=== PATIENT | male | born 1965 | race African-American/Black ===

== ENCOUNTER 2022-07-03 01:48 | Day surgery (SDC) | payer OTHER, SELFPAY ==
[2022-06-19 14:36] VITALS: BMI 25.9
[2022-07-03 06:23] VITALS: BP 139/85; PULSE 86; RESP 18; TEMP 36.1; O2SAT 100; BMI 25.9
[2022-07-03] MEDS: LACTATED RINGERS 1,000 ML 150 ML IV CONT (06:34)
--- NOTE | 2022-07-03 07:24 | P.PNAN_ITS ---
Anes - Initial Pre Proc Eval Procedure: Operation Date: 07/03/22 07:30 Proposed Procedures p Screening Colonoscopy - Stephen Donohue MD Date/Time: 07/03/22 07:24 Surgeon: Stephen Donohue MD Pre Op Diagnosis: neoplasm screening, hx colon polyps Patient Data Age: 56 Gender: M Height: 1.85 m Weight: 89.1 kg Last Vital Signs Temp 97 F L 07/03/22 06:23 Pulse 86 07/03/22 06:23 Resp 18 07/03/22 06:23 BP 139/85 07/03/22 06:23 Pulse Ox 100 07/03/22 06:23 O2 Del Method Room Air 07/03/22 06:23 Allergies Allergy/AdvReac Type Severity Reaction Status Date / Time No Known Allergies Allergy Verified 06/19/22 14:35 Home Medications Medication Instructions Recorded Confirmed Type sodium,potassium,mag sulfates 17.5 See Rx Instructions PO .COMPLEX 06/16/22 Rx gram-3.13 gram-1.6 gram oral soln #354 mL (Suprep Bowel Prep Kit) Patient hx anesthesia problems: none Family hx anesthesia problems: none Results Review: All pre-operative results and documents have been reviewed as part of the pre- operative evaluation. [facility] Social History Social History Smoking status: Never smoker Alcohol intake: never Substance use: never Substance use type: does not use Living arrangements: with family Spiritual care concerns: No Anes - Eval Final PreProcedure Day of Procedure 07/03/22 07:24 Patient weight: normal Heart: regular rate and rhythm Lungs: clear to auscultation Airway: Mallampati scale class II Neurological: alert and oriented Last oral intake: >/= 8 hours ASA classification: II Emergent: no Anesthetic plan: proceed Anesthesia type and monitoring: general GIVS and standard monitoring Results Review: All pre-operative results and documents have been reviewed as part of the pre- operative evaluation. Informed Consent: The patient's anesthetic plan and its attendant risks and benefits were discussed with the patient/family/POA. Questions were solicited and answers provided to the satisfaction of the patient/family/POA.
--- NOTE | 2022-07-03 07:42 | P.HP_ITS ---
History of Present Illness History of Present Illness Consent: Risks, benefits, and alternatives have been discussed and questions answered. Patient agrees to proceed with procedure. Chief complaint: neoplasm screening, hx colon polyps Narrative: Alban Anderson is a 56 year old male Presents for screening colonoscopy. Patient reports that his current weight appetite and bowel movements are normal. Patient denies abdominal pain. He has had no bleeding. Patient reports 7 years ago underwent colonoscopy in small polyp was removed but he ultimately was told it was not pathologic. patient's family history is noncontributory. Review of Systems Review of Systems: Review of systems is noncontributory. [facility] Social History Social History Smoking status: Never smoker Alcohol intake: never Substance use: never Substance use type: does not use Living arrangements: with family Spiritual care concerns: No Meds Home Medications and Allergies Home Medications Medication Instructions Recorded Confirmed Type sodium,potassium,mag sulfates 17.5 See Rx Instructions PO .COMPLEX 06/16/22 Rx gram-3.13 gram-1.6 gram oral soln #354 mL (Suprep Bowel Prep Kit) Allergies Allergy/AdvReac Type Severity Reaction Status Date / Time No Known Allergies Allergy Verified 06/19/22 14:35 Vital Signs Vital Signs - 24 hr 07/03/22 06:23 Temperature 97 F L Pulse Rate 86 Respiratory Rate 18 Blood Pressure 139/85 Pulse Oximetry 100 Oxygen Delivery Room Air Exam Narrative: Physical exam reveals patient be alert. Vital signs stable. HEENT exam is unremarkable. Patient is anicteric. Lungs are clear to auscultation and percussion. Heart is without murmur or extra sounds. Abdomen bowel sounds are present soft nontender with no organomegaly. Digital external rectal exam is normal. Assessment and Plan Assessment and plan (1) Encounter for screening colonoscopy: Code(s): Z12.11 - Encounter for screening for malignant neoplasm of colon Status: Acute Assessment and Plan: Patient presents today for screening colonoscopy. Appears to be at average risk for colon polyps. Further recommendations will be given after endoscopy.
[2022-07-03 07:44] VITALS: BP 96/63; PULSE 58; RESP 23; O2SAT 95
[2022-07-03 07:54] VITALS: BP 120/76; PULSE 65; RESP 19; O2SAT 97
[2022-07-03 08:04] VITALS: BP 133/90; PULSE 66; RESP 19; O2SAT 97
== END 2022-07-03 08:09 | disposition home or self-care (01) ==
PROVIDERS: Visit Provider Internal Medicine Gastroenterology
PROC: 0DJD8ZZ Inspection of Lower Intestinal Tract, Via Natural or Artificial Opening Endoscopic (ICD-10-PCS; CPT 45378; principal; 2022-07-03 07:30)
DX: Z12.11 Encounter for screening for malignant neoplasm of colon (principal); K64.8 Other hemorrhoids
CPT/HCPCS: 45378; J7120

== ENCOUNTER → 2023-08-13 13:43 | Outpatient (CLI) | payer OTHER, SELFPAY ==
--- NOTE | ~2023-08-13 | CT_ITS ---
CT of the Abdomen and Pelvis: Indication: Abdominal pain Technique: 2.5 mm axial scans were obtained through the abdomen and pelvis following intravenous adm inistration of 100 cc of Omnipaque 350. Dose reduction technique was used on this scan by utilizing a utomated exposure control and iterative reconstruction technique. The dose-length product (DLP) was 6 95.59 mGy-cm. Findings: Scans through the lung bases are unremarkable. The liver, spleen, pancreas, gallbladder, adrenals and kidneys are within normal limits. No evidence of aortic aneurysm. No lymphadenopathy. No bowel obstruction or bowel wall thickening. There is no evidence to suggest acute appendicitis. Images through the pelvis were performed. Urinary bladder unremarkable. Prostate gland is significant ly enlarged. No ascites. Impression: No acute abnormality. Enlarged prostate gland. Reviewed, dictated and finalized at [facility]. RAISER Impression: No acute abnormality. Enlarged prostate gland.
== END ==
PROVIDERS: PCP Emergency Medicine; Visit Provider Emergency Medicine
DX: R10.30 Lower abdominal pain, unspecified (principal); N40.0 Benign prostatic hyperplasia without lower urinary tract symptoms
CPT/HCPCS: 74177; Q9967

== ENCOUNTER 2023-08-28 07:27 | Outpatient (CLI) | payer OTHER, SELFPAY ==
--- NOTE | ~2023-08-28 | US_ITS ---
EXAMINATION: US abdomen limited DATE: 08/28/2023 07:47 INDICATION: Liver disease with elevated liver function tests TECHNIQUE: Multiple grayscale and Doppler ultrasound images of the abdomen were obtained. COMPARISON: None FINDINGS: The pancreatic head and body are normal in appearance. The pancreatic tail is not visualized. The vi sualized proximal inferior vena cava is normal. Liver has normal echogenicity and contour, with a smo oth surface. No liver lesion identified. No intrahepatic biliary duct dilation suspected. Portal veno us flow was seen in the hepatopetal, normal direction and has normal Doppler waveform. The gallbladde r is normal in appearance. There is no cholelithiasis. The common bile duct measures 4 mm, which is normal. Sonographic Sheets sign was reported as negative by the human resource analyst. IMPRESSION: 1. Normal right upper quadrant ultrasound. Reviewed, dictated and finalized at location A.
== END 2023-08-28 07:28 ==
PROVIDERS: PCP Emergency Medicine; Visit Provider Emergency Medicine
DX: K76.9 Liver disease, unspecified (principal)
CPT/HCPCS: 76705

== ENCOUNTER 2023-09-22 10:07 | Outpatient (CLI) | payer OTHER, SELFPAY ==
--- NOTE | 2023-09-22 10:51 | EST_ITS ---
Patient Info Name: Alban Anderson Age: 57 years : 1965 Gender: Male Ht: 73 in Wt: 198 lbs BSA: 2.16 m2 HR: 48 bpm BP: 119 / 68 mmHg Heart Rhythm: Sinus Rhythm Exam Date: 09/22/2023 11:05 AM Exam Location: Echo Lab Patient Status: Outpatient Admit Date: 09/22/2023 Staff Ordering Physician: Lawrence Yoo DO Attending Provider: Lawrence Yoo DO Exercise Technologist: Jenn Garza CT Exercise Physician: Lawrence Yoo DO Exam Type: CA stress test treadmill Study Info Indications I47.2 - Ventricular tachycardia A treadmill exercise stress test was performed. Summary 1. 1. Abnormal Terell exercise stress test for ischemic ST changes by ECG criteria. 2. 2. Good functional capacity, achieving 10 METs of workload. 3. 3. Appropriate HR response to exercise. 4. 4. Appropriate HR recovery at 1 minute post exercise. 5. 5. No imaging with stress testing. 6. 6. Patient informed of the above results. Protocol: Terell Stress ECG Details Stage: REST Duration (min): 1 min : 14 sec Speed (mph): 0.0 Grade (%): 0 HR (bpm): 45 SBP (mmHg): 119 DBP (mmHg): 68 METS: --- Stage: REST Duration (min): 2 min : 48 sec Speed (mph): 0.0 Grade (%): 0 HR (bpm): 52 SBP (mmHg): 119 DBP (mmHg): 68 METS: --- Stage: REST Duration (min): 4 min : 16 sec Speed (mph): 0.0 Grade (%): 0 HR (bpm): 51 SBP (mmHg): 119 DBP (mmHg): 68 METS: --- Stage: STAGE 1 Duration (min): 1 min : 0 sec Speed (mph): 1.7 Grade (%): 10 HR (bpm): 67 SBP (mmHg): 119 DBP (mmHg): 68 METS: --- Stage: STAGE 1 Duration (min): 2 min : 0 sec Speed (mph): 1.7 Grade (%): 10 HR (bpm): 72 SBP (mmHg): 119 DBP (mmHg): 68 METS: --- Stage: STAGE 1 Duration (min): 3 min : 0 sec Speed (mph): 1.7 Grade (%): 10 HR (bpm): 74 SBP (mmHg): 129 DBP (mmHg): 77 METS: --- Stage: STAGE 2 Duration (min): 1 min : 0 sec Speed (mph): 2.5 Grade (%): 12 HR (bpm): 88 SBP (mmHg): 129 DBP (mmHg): 77 METS: --- Stage: STAGE 2 Duration (min): 2 min : 0 sec Speed (mph): 2.5 Grade (%): 12 HR (bpm): 93 SBP (mmHg): 153 DBP (mmHg): 69 METS: --- Stage: STAGE 2 Duration (min): 3 min : 0 sec Speed (mph): 2.5 Grade (%): 12 HR (bpm): 98 SBP (mmHg): 153 DBP (mmHg): 69 METS: --- Stage: STAGE 3 Duration (min): 1 min : 0 sec Speed (mph): 3.4 Grade (%): 14 HR (bpm): 107 SBP (mmHg): 153 DBP (mmHg): 70 METS: --- Stage: STAGE 3 Duration (min): 2 min : 0 sec Speed (mph): 3.4 Grade (%): 14 HR (bpm): 115 SBP (mmHg): 153 DBP (mmHg): 70 METS: --- Stage: STAGE 3 Duration (min): 2 min : 0 sec Speed (mph): 3.4 Grade (%): 14 HR (bpm): 115 SBP (mmHg): 153 DBP (mmHg): 70 METS: --- Stage: RECOVERY Duration (min): 0 min : 59 sec Speed (mph): 0.0 Grade (%): 0 HR (bpm): 80 SBP (mmHg): 140 DBP (mmHg): 53 METS: ---
== END 2023-09-22 10:08 | disposition home or self-care (01) ==
PROVIDERS: PCP Emergency Medicine; Visit Provider Internal Medicine Cardiovascular Disease
DX: I47.29 Other ventricular tachycardia (principal)
CPT/HCPCS: 93017

== ENCOUNTER 2023-09-28 13:53 | Outpatient (CLI) | payer OTHER, SELFPAY ==
--- NOTE | ~2023-09-28 | US_ITS ---
EXAMINATION: US thyroid DATE: 09/28/2023 14:10 INDICATION: Autoimmune thyroiditis. TECHNIQUE: Multiple ultrasound images of the thyroid were obtained. COMPARISON: None. FINDINGS: The right thyroid lobe measures 3.9 x 1.7 x 1.5 cm. The left thyroid lobe measures 4.5 x 2.1 x 1.7 c m. The thyroid demonstrates coarsened echotexture. Vascularity is normal. In the left thyroid lobe, there is an 8 mm solid, hyperechoic, taller than wide nodule with smooth margin without echogenic foc i (TI-RADS TR4). IMPRESSION: 1. Small thyroid nodule, likely not clinically significant. No follow-up is needed. 2. Heterogeneous thyroid, likely chronic lymphocytic (Nannette) thyroiditis. Reviewed, dictated and finalized at location E. IMPRESSION: 1. Small thyroid nodule, likely not clinically significant. No follow-up is nee ded. 2. Heterogeneous thyroid, likely chronic lymphocytic (Nannette) thyroiditis.
== END 2023-09-28 13:54 ==
PROVIDERS: PCP Emergency Medicine; Visit Provider Emergency Medicine
DX: E06.3 Autoimmune thyroiditis (principal); E04.1 Nontoxic single thyroid nodule
CPT/HCPCS: 76536

== ENCOUNTER 2023-10-14 12:29 | Outpatient (CLI) | payer OTHER, SELFPAY ==
--- NOTE | 2023-10-14 12:42 | ECHO_ITS ---
Patient Info Name: Alban Anderson Age: 57 years : 1965 Gender: Male Ht: 73 in Wt: 195 lbs BSA: 2.14 m2 HR: 56 bpm BP: 151 / 85 mmHg Technical Quality: Good Exam Date: 10/14/2023 12:48 PM Exam Location: Echo Lab Patient Status: Outpatient Admit Date: 10/14/2023 Staff Ordering Physician: Lawrence Yoo DO Dielectric Tester: Jay Yang RDCS Attending Provider: Lawrence Yoo DO Referring Physician: Fredo HAMILTON; Exam Type: CA echo doppler color flow Study Info Indications I47.9 - Paroxysmal tachycardia, unspecified Complete two-dimensional, color flow and Doppler transthoracic echocardiogram is performed. Summary 1. Complete two-dimensional, color flow and Doppler transthoracic echocardiogram is performed. 2. Left ventricular chamber dimension is normal. 3. Left ventricular systolic function is normal, estimated at 65-70%. 4. The left ventricular diastolic function is normal. 5. E/e' 9 is minimally elevated. 6. Left atrial chamber dimension is mildly enlarged. 7. There is mild mitral valve regurgitation. 8. There is mild tricuspid valve regurgitation. 9. No pulmonary hypertension, estimated pulmonary arterial systolic pressure is 32 mmHg. 10. There is trace pulmonic regurgitation. Left Ventricle E/e' 9 is minimally elevated. Left ventricular chamber dimension is normal. Left ventricular systolic function is normal, estimated at 65-70%. The left ventricular diastolic function is normal. Right Ventricle Right ventricular systolic function is normal and with normal TAPSE 2.7 cm. Right ventricular chamber dimension is normal. Left Atria Left atrial chamber dimension is mildly enlarged. Right Atria Right atrial chamber dimension is normal. Aortic Valve The aortic valve is trileaflet. There is no aortic valve stenosis. There is no aortic valve regurgitation. Pulmonic Valve There is trace pulmonic regurgitation. Mitral Valve There is no mitral valve stenosis. There is mild mitral valve regurgitation. Tricuspid Valve There is mild tricuspid valve regurgitation. No pulmonary hypertension, estimated pulmonary arterial systolic pressure is 32 mmHg. Pericardium/Pleural There is no pericardial effusion. Inferior Vena Cava Normal inferior vena cava with >50% collapse upon inspiration consistent with normal right atrial pressure, 5 mmHg. Aorta The aortic root size at the sinus of Valsalva is normal. Left Ventricular Outflow Tract Name Value Normal LVOT Doppler LVOT Peak Gradient 8 mmHg LVOT Mean Gradient 3 mmHg LVOT VTI 27 cm LVOT VTI/AV VTI Ratio 0.9 Pulmonic Valve Name Value Normal RVOT Doppler RVOT Peak Gradient 2 mmHg PV Doppler PV Peak Gradient 8 mmHg PV Regurgitation Doppler GA Peak End Diastolic Velocity
== END 2023-10-14 12:30 | disposition home or self-care (01) ==
LOC: ANHCARD 12:30
PROVIDERS: PCP Emergency Medicine; Visit Provider Internal Medicine Cardiovascular Disease
DX: I47.29 Other ventricular tachycardia (principal); I08.1 Rheumatic disorders of both mitral and tricuspid valves
CPT/HCPCS: 93306

== ENCOUNTER 2023-11-09 00:48 | Day surgery (SDC) | payer OTHER, SELFPAY ==
[2023-11-05 13:05] VITALS: BMI 25.7
[2023-11-09] VITALS (13 sets, daily range): BP systolic 103–125; BP diastolic 66–88; PULSE 37–50; RESP 12–16; TEMP 36–36.7; O2SAT 95–99; BMI 25.7
[2023-11-09 07:39] LABS: Basophils Absolute Auto 0.1 K/mm3 (0.0-0.1); Basophils Percent Auto 1.3 % (0.2-1.2); Eosinophils Absolute Auto 0.2 K/mm3 (0-0.3); Eosinophils Percent Auto 3.2 % (0-4.4); Hematocrit 46.9 % (42.0-52.0); Hemoglobin 15.2 g/dL (14.0-18.0); Immature Granulocyte Absolute 0.02 K/mm3 (0.00-0.031); Immature Granulocyte Percent A 0.3 % (0-0.5); Lymphocytes Absolute Auto 2.26 K/mm3 (0.9-3.2); Lymphocytes Percent Auto 31.4 % (18.3-44.2); Mean Corpuscular HGB Conc 32.4 g/dl (32-36); Mean Corpuscular Hemoglobin 27.1 pg (26-34); Mean Corpuscular Volume 83.8 fl (80-100); Mean Platelet Volume 10.5 fl (7.4-10.4); Monocytes Absolute Auto 0.7 K/mm3 (0.1-0.6); Neutrophils Absolute Auto 3.9 K/mm3 (1.3-6.7); Neutrophils Percent Auto 53.8 % (45.5-73.1); Platelet Count Result 203 k/mm3 (150-375); Red Cell Distribution Width 13.2 % (11.5-14.5); White Blood Count 7.2 K/mm3 (4.5-10.0)
[2023-11-09 07:49] LABS: Anion Gap 7 mmol/L (4-12); Blood Urea Nitrogen 22 mg/dL (9-20); Calcium 9.5 mg/dL (8.4-10.2); Carbon Dioxide 24 mmol/L (22-30); Chloride 108 mmol/L (98-107); Estimated CRCL calculation 79 ml/min; Estimated Glomerular Filt Rate > 60; Glucose 123 mg/dL (65-110); Potassium 4.3 mmol/L (3.4-5.0); Sodium 139 mmol/L (137-145)
[2023-11-09] MEDS: SODIUM CHLORIDE 0.9% IV 500 ML 100 ML IV CONT (08:15)
--- NOTE | 2023-11-09 08:57 | WPDHPUPDATE1 ---
History and Physical Update Update Date/Time: 11/09/23 08:57 History and Physical has been reviewed, including an updated exam of the patient. There are NO changes in the patient's condition. Risks, benefits, and alternatives have been discussed and questions answered. Patient agrees to proceed with procedure.
--- NOTE | 2023-11-09 08:57 | WPDMODSED ---
Moderate Sedation Note-Pt Data Patient Data Diagnosis: Coronary artery disease Present Complaint: Coronary artery disease Procedure to be performed/Plan: Coronary angiography, left heart cath, +/- PCI Allergies Allergy/AdvReac Type Severity Reaction Status Date / Time No Known Allergies Allergy Verified 11/09/23 07:26 Home Medications Medication Instructions Recorded Confirmed Type metoprolol succinate 25 mg 25 mg PO DAILY #30 tabs 09/07/23 11/09/23 Rx tablet,extended release 24 hr aspirin 81 mg tablet,delayed 81 mg PO DAILY 10/15/23 11/09/23 History release Current Medications: Active Medications Sodium Chloride (Normal Saline Iv) 500 mls @ 100 mls/hr IV CONT .Q5H [facility] Sedation/Anesthesia: No previous sedation/anesthesia problems (including family history). [facility] Social History Social History Smoking status: Never smoker Second hand tobacco smoke exposure: No Alcohol intake: never Substance use: never Substance use type: does not use Do You Feel Safe in your Home?: Yes Lack of Transportation: No Lack of Food: Never True Current Housing: I Have Housing Concerned About Future Housing: No Difficulty Paying Gas/Electric Bills: No Difficulty Paying for Meds: No Currently Unemployed: No Education: Associate Degree Difficulty w/ Childcare or Family Care: No Living arrangements: with family Spiritual care concerns: No Mod Sed Physical Exam Physical Exam Pre Procedural Exam: Normal: Appearance, Lungs, Heart Rate, Heart Rhythm, Neuro Exam, Abdomen, Extremities and Skin Hours since solid foods: 12 Hours since liquid intake: 8 Mallampati Classification: class III Internal Medicine - PN: Obj Da Vital Signs Vital Signs: Vital Signs - 24 hr 11/09/23 07:27 Temperature 36.7 C Pulse Rate 50 L Respiratory Rate 14 Blood Pressure 114/88 Pulse Oximetry 98 Oxygen Delivery Room Air Meds/Results Medications: Active Medications Generic Name Dose Route Start Last Admin Trade Name Freq PRN Reason Stop Dose Admin Sodium Chloride 500 mls @ 100 mls/hr 11/09/23 07:00 Normal Saline Iv IV CONT .Q5H [facility] 11/09/23 07:33 11/09/23 07:33 Labs: Laboratory Results - last 24 hr 11/09/23 07:33 WBC 7.2 RBC 5.60 Hgb 15.2 Hct 46.9 MCV 83.8 MCH 27.1 MCHC 32.4 RDW 13.2 Plt Count 203 MPV 10.5 H Immature Gran % (Auto) 0.3 Neut % (Auto) 53.8 Lymph % (Auto) 31.4 Winkler % (Auto) 10.0 H Eos % (Auto) 3.2 Baso % (Auto) 1.3 H Lymph # (Auto) 2.26 Winkler # (Auto) 0.7 H Eos # (Auto) 0.2 Baso # (Auto) 0.1 Abs Immat Gran (auto) 0.02 Absolute Neuts (auto) 3.9 Absolute Nucleated RBC 0.000 Nucleated RBC % 0.0 Sodium 139 Potassium 4.3 Chloride 108 H Carbon Dioxide 24 Anion Gap 7 BUN 22 H Creatinine 1.00 Estim Creat Clear Calc 79 Estimated GFR > 60 Glucose 123 H Calcium 9.5 ASA Classification/Sedation ASA Classification/Sedation ASA Class: II Emergent: No Risks: Risks, benefits and alternatives explained and patient/family accepted plan for sedation. Patient re-evaluated immediately prior to sedation.
--- NOTE | 2023-11-09 09:27 | WPDCARDPROC ---
Cardiac Cath Procedure Note Date of procedure:: 11/09/23 Performing physician:: CATHETERIZATION LABORATORY REPORT Procedure Date: 11/09/2023 Chemistry Instructor: Drew Rajput M.D., [facility]? Referring Physician: Lawrence Yoo M.D.? Anesthesia: Versed and Fentanyl were ordered and given in my presence at 08:57, procedure ended at 09:24. Supervision of nurse monitored moderate sedation with Versed and Fentanyl was provided for 27 minutes. Total of Versed 1mg and Fentanyl 50mcg were administered by the Clinical Specialist RN Mare Fernandes. Pre-op Diagnosis: Coronary artery disease, abnormal stress test Post-op Diagnosis: 1. Mild non-obstructive coronary artery disease. Slow flow noted in the LAD, LCX, and RCA. 2. Elevated left ventricular end-diastolic pressure of 22mmHg Procedure(s): 1. Moderate sedation 2. Ultrasound-guided access of the right radial artery 3. Coronary angiography 4. Left heart catheterization Access Site: Right radial artery Brief History and Clinical Indications: Patient is a 58 year old male who is referred for [facility] for abnormal stress test. All risks, benefits and alternatives to left heart catheterization with or without percutaneous coronary intervention was discussed at length with the patient. Risk of complications including but not limited to bleeding, infection, arrhythmia, stroke, worsening kidney function, blood loss, groin hematoma, limb loss, emergency coronary artery bypass grafting, and even were discussed with the patient and all questions were answered. The patient understood and wished to proceed. Time out called, patient name, date of , medical record number, allergies, procedure performed, identify Chemistry Instructor, patient and staff member concurred with accurate data, procedure carried on. Findings: LEFT HEART CATHETERIZATION FINDINGS: 1. Left main: The left main coronary artery is widely patent without any significant obstructive disease. 2. Left anterior descending: The LAD has slow flow. The LAD has luminal irregularities. The first diagonal branch has mild disease. 3. Left circumflex: The left circumflex artery is co-dominant. The left circumflex artery has luminal irregularities. Slow flow noted in the LCX on initial angiograms. OM-1 is a medium-large caliber vessel with mild disease. OM-2 is a small caliber vessel. OM-3 is a large caliber vessel with luminal irregularities. No significant obstructive angiographic disease. 4. Right coronary artery: Slow flow noted in the RCA. The RCA has luminal irregularities without any significant obstructive angiographic disease. The RCA is co-dominant vessel. 5. Left ventricle: A. End-diastolic pressure 22 mmHg. B. LV gram deferred. C. No significant gradient across aortic valve on catheter pullback. Description of Procedure: Informed consent signed and placed in the chart. Patient transferred to foundry laborer coreroom room. Prepped and draped in usual sterile fashion. 2% lidocaine injected subcutaneously in right wrist area. 22-gauge venipuncture catheter used to access the right radial artery under ultrasound guidance. 6-FR slender sheath placed in right radial artery. Nitroglycerine and Verapamil were given intraarterial through the sheath. Versacore wire advanced under fluoroscopy 5F Tig 4 diagnostic catheter engaged Left Main Coronary Artery. 5F Tig 4 diagnostic catheter engaged Right Coronary Artery Multiple orthogonal angiogram obtained and reviewed 5F Pigtail diagnostic catheter crossed aortic valve to obtain LVEDP, LV angiogram deferred. Hemostasis was achieved by application of TR band. Post Operative Condition: Stable No significant blood loss Disposition: Home Plan: The patient will be monitored in the recovery area. Discharge home after post-cath bed rest is completed. The above findings were discussed with the referring physician. Continue aggressive medical therapy and risk factor modification. ? Drew Rajput M.D. [facility]
== END 2023-11-09 13:05 | disposition home or self-care (01) ==
PROVIDERS: PCP Emergency Medicine; Visit Provider Internal Medicine
PROC: 4A023N7 Measurement of Cardiac Sampling and Pressure, Left Heart, Percutaneous Approach (ICD-10-PCS; CPT 93452; principal; 2023-11-09 08:30)
DX: I25.10 Atherosclerotic heart disease of native coronary artery without angina pectoris (principal); R94.39 Abnormal result of other cardiovascular function study; Z79.82 Long term (current) use of aspirin
CPT/HCPCS: 36415; 80048; 85025; 93458; C1769; C1887; C1894; J1644; J2250; J2305; J3010; J7040